=== PATIENT | male | born 1995 | race Caucasian/White ===

== ENCOUNTER 2020-02-08 02:32 | Emergency (ER) | payer OTHER, MEDICAID ==
[~2020-02-08] VITALS: Ht 172.7 cm; Wt 81.6 kg
[2020-02-08 02:38] VITALS: BP_SYST 137
--- NOTE | 2020-02-08 02:38 | NUR ---
Patient to ER bed 05 to gown for evaluation. Side rails up. Report given to JUAN Woo
--- NOTE | 2020-02-08 02:42 | NUR ---
ER at bedside examining patient.
--- NOTE | 2020-02-08 02:46 | NUR ---
ER MD DR. TIMMONS AT BEDSIDE EXAMINING PATIENT
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
--- NOTE | 2020-02-08 02:49 | NUR ---
Patient given written and verbal discharge instructions and verbalizes understanding. ER MD DR. TIMMONS discussed with patient the results and treatment provided. Patient in stable condition. ID arm band removed. Patient educated on pain management and to follow up with PMD. Opportunity for questions provided and answered. Medication side effect fact sheet provided.
[2020-02-08 03:01] VITALS: BP_SYST 137
== END 2020-02-08 02:49 | disposition home or self-care (01) ==
LOC: SED 02:32
DX: K60.2 Anal fissure, unspecified (principal); J45.909 Unspecified asthma, uncomplicated
CPT/HCPCS: 99281